=== PATIENT | male | born 1980 | race Caucasian/White ===

== ENCOUNTER 2023-07-05 16:50 | Inpatient (IN) ==
[2023-07-05] MEDS ORDERED: Cefepime 2 GM in Dextrose 2 GM/50 ML BAG IV ONE (17:26)
[2023-07-05 18:12] LABS: ABS Eosinophils 0.1 10^3/uL (0.0-0.5); ABS Lymphocytes 1.5 10^3/uL (1.0-4.8); ABS Monocytes 0.6 10^3/uL (0.0-1.1); ABS Neutrophils 6.2 10^3/uL (1.5-7.6); Eosinophil % 0.7 %; Hemoglobin 14.1 g/dL (13.2-16.3); Lymphocyte % 17.7 %; Mean Corpuscular Hgb Conc 34.5 g/dL (31-36); Mean Platelet Volume 8.7 fL (7.5-11.2); Platelet Count 268 10^3/uL (150-450); Red Blood Count 4.55 10^6/uL (4.06-5.63); Red Cell Distribution Width 12.6 % (12-17); White Blood Count 8.4 10^3/uL (3.6-10.2)
[2023-07-05 18:32] LABS: Albumin 4.3 g/dL (3.2-5.2); Albumin/Globulin Ratio 1.5 (1-3); C Reactive Protein 78.89 mg/L (<8.01); Calcium 9.7 mg/dL (8.6-10.3); Creatinine, Serum 0.9 mg/dL (0.67-1.17); Globulin 2.9 g/dL (2-4); Potassium 4.1 mmol/L (3.5-5.0); Total Bilirubin 0.4 mg/dL (0.2-1.0); Total Protein 7.2 g/dL (6.4-8.9); eGFR CKD-EPI 108.7 (>60)
[2023-07-05] MEDS ORDERED: Vancomycin 2,000 MG in NS 0.9% 500 ml BAG 500 ML IVPB ONE (21:00)
[2023-07-05] MEDS ORDERED: Vancomycin 2,000 MG in NS 0.9% 250 ml 250 ML IVPB SCH (21:00)
[2023-07-05] MEDS ORDERED: Lactated Ringers 1000 ml BAG 1,000 ML IV ONE (21:47)
[2023-07-05] MEDS ORDERED: Vancomycin per Pharmacy 1 EA NOTE FOLLOW UP SCH (22:00)
[2023-07-05] MEDS ORDERED: Enoxaparin 40 MG/0.4 ML SYR SUBCUT SCH (22:00)
[2023-07-05] MEDS: ceFAZolin 1 GM in Dextrose 1 GM/50 ML BAG IVPB SCH (23:52)
[2023-07-06] MEDS: ceFAZolin 1 GM in Dextrose 1 GM/50 ML BAG IVPB SCH (05:42)
[2023-07-06 07:10] LABS: ABS Eosinophils 0.1 10^3/uL (0.0-0.5); ABS Lymphocytes 1.6 10^3/uL (1.0-4.8); ABS Monocytes 0.8 10^3/uL (0.0-1.1); ABS Neutrophils 5.2 10^3/uL (1.5-7.6); Eosinophil % 1.4 %; Hematocrit 40.3 % (38-53); Lymphocyte % 20.5 %; Mean Corpuscular Hemoglobin 31.4 pg (27-33); Mean Corpuscular Hgb Conc 34.7 g/dL (31-36); Mean Corpuscular Volume 90.6 fL (80-97); Mean Platelet Volume 8.7 fL (7.5-11.2); Platelet Count 237 10^3/uL (150-450); Red Blood Count 4.45 10^6/uL (4.06-5.63); Red Cell Distribution Width 12.9 % (12-17); White Blood Count 7.7 10^3/uL (3.6-10.2)
[2023-07-06 07:29] LABS: Albumin 3.8 g/dL (3.2-5.2); Albumin/Globulin Ratio 1.4 (1-3); Calcium 8.8 mg/dL (8.6-10.3); Creatinine, Serum 0.94 mg/dL (0.67-1.17); Globulin 2.7 g/dL (2-4); Magnesium 1.9 mg/dL (1.9-2.7); Potassium 3.8 mmol/L (3.5-5.0); Total Bilirubin 0.4 mg/dL (0.2-1.0); Total Protein 6.5 g/dL (6.4-8.9); eGFR CKD-EPI 103.2 (>60)
[2023-07-06] MEDS: Vancomycin 2,000 MG in NS 0.9% 500 ml BAG 500 ML IVPB SCH ×2 (07:31→18:17)
[2023-07-06] MEDS ORDERED: Polyethylene Glycol 3350 17 GM PACKET PO SCH (08:00)
[2023-07-06] MEDS ORDERED: Polyethylene Glycol 3350 17 GM PACKET PO PRN (10:01)
[2023-07-06] MEDS ORDERED: Senna TAB 8.6 mg TAB PO PRN (10:01)
[2023-07-06 12:20] LABS: C Reactive Protein 49.6 mg/L (<8.01)
[2023-07-06] MEDS: cefTRIAXone 1 gm/50 mL D5W 1 GM/50 ML BAG IV SCH (13:23)
[2023-07-06] MEDS ORDERED: Senna TAB 8.6 mg TAB PO SCH (21:00)
[2023-07-07] MEDS ORDERED: Vancomycin Trough Check NOTE FOLLOW UP ONE (06:00)
[2023-07-07] MEDS: Vancomycin 2,000 MG in NS 0.9% 500 ml BAG 500 ML IVPB SCH ×2 (07:41→18:21)
[2023-07-07] MEDS: cefTRIAXone 1 gm/50 mL D5W 1 GM/50 ML BAG IV SCH (13:08)
[2023-07-08] MEDS: Vancomycin 2,000 MG in NS 0.9% 500 ml BAG 500 ML IVPB SCH (06:03)
[2023-07-08 10:48] VITALS: BP 131/88
[2023-07-08] MEDS: cefTRIAXone 1 gm/50 mL D5W 1 GM/50 ML BAG IV SCH (11:58)
== END 2023-07-08 13:25 | disposition home or self-care (01) | DRG 351 ==
LOC: EDHOLD 16:50 → ED 16:50 → SUATTDRO 21:38 → SSU 22:42 → SUATTDRO 07-07 15:25
PROVIDERS: ADMIT Internal Medicine; ATTEND Student in an Organized Health Care Education/Training Program